=== PATIENT | female | born 1995 | race Caucasian/White ===

== ENCOUNTER 2017-07-16 19:14 | Emergency (ER) | payer OTHER ==
[~2017-07-16] VITALS: Ht 162.6 cm; Wt 88.5 kg
[~2017-07-16 19:14] MED LIST: AMITRIPTYLINE H10 MG
== END 2017-07-16 21:30 | disposition home or self-care (01) ==
LOC: ER 19:14
DX: J06.9 Acute upper respiratory infection, unspecified (principal)

== ENCOUNTER → 2017-08-21 | Emergency (ER) | payer OTHER ==
[~2017-08-21] VITALS: Ht 162.6 cm; Wt 88.5 kg
== END | disposition home or self-care (01) ==
LOC: ER 19:19
DX: M62.838 Other muscle spasm (principal)

== ENCOUNTER 2017-09-05 01:44 | Emergency (ER) | payer OTHER ==
[~2017-09-05] VITALS: Ht 162.6 cm; Wt 88.5 kg
[2017-09-05] MEDS ORDERED: SINGULAIR10 MG (02:07)
[2017-09-05] MEDS ORDERED: PERCOCET 5-3251 EACH PO (03:06)
== END 2017-09-05 03:13 | disposition home or self-care (01) ==
LOC: ER 01:44
DX: D23.62 Other benign neoplasm of skin of left upper limb, including shoulder (principal)